=== PATIENT | female | born 1970 | race Caucasian/White ===

== ENCOUNTER → 2024-05-01 | Day surgery (SDC) | payer OTHER ==
[~2024-05-01] MED LIST: TRIAMCINOLONE ACET 40MG/1ML VIAL IM ONE
== END | disposition home or self-care (01) ==
LOC: JRADIR 11:16
PROVIDERS: ATTEND Physician Assistant
PROC: BQ01YZZ Plain Radiography of Left Hip using Other Contrast (ICD-10-PCS; principal; 2024-05-01)
DX: M25.552 Pain in left hip (principal)
CPT/HCPCS: 27093; 73525-TC-FY; 84703